=== PATIENT | female | born 2005 | race Caucasian/White ===

== ENCOUNTER 2024-03-23 13:55 | Emergency (ER) | payer OTHER ==
[~2024-03-23] VITALS: Ht 157.5 cm; Wt 68.2 kg
[2024-03-23 13:55] VITALS: TEMP 98.2
[2024-03-23 14:41] LABS: BASO % 0.4 % (0.0-2.0); EOS # 0.1 K/mm3 (0.0-0.7); EOS % 1.1 % (0.0-4.0); GRAN # 3.8 K/mm3 (1.4-6.5); GRAN % 52.1 % (42.2-75.2); HEMATOCRIT 38.7 % (37.0-47.0); HEMOGLOBIN 12.7 g/dl (12.5-16.0); LYMPH % 40.9 % (20.0-51.0); MEAN CELL VOLUME 92 fl (80.0-100.0); MEAN CORPUSCULAR HEMOGLOBIN 30 pg (27-31); MEAN CORPUSCULAR HGB CONC 33 g/dl (33.0-37.0); MEAN PLATELET VOLUME 9.2 fl (7.4-10.4); MONO # 0.4 K/mm3 (0.1-0.6); MONO % 5.4 % (1.7-9.3); PLATELET COUNT 392 K/mm3 (130-400); RED BLOOD COUNT 4.19 M/mm3 (4.10-5.30); REDCELL DISTRIBUTION WIDTH-CV 12.3 % (11.5-14.5)
[2024-03-23 15:44] LABS: BLOOD UREA NITROGEN 15 mg/dL (7-19); CHLORIDE 105 mEq/L (98-107); GLUCOSE 87 mg/dL (70-99); POTASSIUM 3.6 mEq/L (3.5-4.5); SODIUM 137 mEq/L (136-145)
[2024-03-23 15:45] LABS: ALANINE AMINOTRANSFERASE 20 U/L (0-55); ALKALINE PHOSPHATASE 77 U/L (40-150); ANION GAP 8 mmol/L (7-16); AST,SGOT 17 U/L (5-34); BILIRUBIN,TOTAL 0.3 mg/dL (0.2-1.2); CALCIUM 9.7 mg/dL (8.4-10.2); TOTAL PROTEIN 7.4 g/dl (6.2-8.1); TROPONIN-I < 0.010 ng/mL (0.00-0.033)
[2024-03-23 16:16] VITALS: BP 119/78; PULSE 63
== END 2024-03-23 16:16 | disposition home or self-care (01) ==
LOC: COL.ER 13:55
PROVIDERS: Nurse Practitioner
DX: R07.9 Chest pain, unspecified (principal)